=== PATIENT | male | born 1950 | race Caucasian/White ===

== ENCOUNTER 2017-09-06 05:01 | Inpatient (IN) | payer OTHER, MEDICARE ==
[~2017-09-06] VITALS: Ht 177.8 cm; Wt 93.1 kg
[2017-09-06] MEDS ORDERED: SODIUM CHLORIDE 0.9% 1,000 ML IV ONE (06:11)
[2017-09-06 07:00] LABS: BASOPHILS % 0.7 % (0.0-2.0); EOSINOPHILS % 2.4 % (0.0-5.0); HEMATOCRIT. 49.4 % (42.0-52.0); HEMOGLOBIN. 16.8 g/dL (14.0-18.0); LYMPHOCYTES % 18.4 % (20.0-50.0); MEAN CORPUSCULAR HEMOGLOBIN 31.8 pg (28.0-32.0); MEAN CORPUSCULAR VOLUME 93.8 fL (80.0-94.0); MEAN PLATELET VOLUME 8.4 fl (7.4-10.4); MONOCYTES % 8.1 % (2.0-8.0); NEUTROPHILS % 70.4 % (40.0-76.0); PLATELET 222 x1000/uL (130-400); RED BLOOD CELL COUNT 5.27 mill/uL (4.7-6.1); RED CELL DISTRIBUTION WIDTH 14.5 % (11.6-14.6)
[2017-09-06 07:12] LABS: INR 1.1; PROTHROMBIN TIME 11.1 sec (9.4-11.6)
[2017-09-06 07:15] LABS: CARBON DIOXIDE 29 mEq/L (21-32); CHLORIDE 107 mEq/L (98-107)
[2017-09-06] MEDS ORDERED: LORAZEPAM 2MG/ML CPJ IV ONE (08:30)
[2017-09-06] MEDS ORDERED: SODIUM CHLORIDE 0.45% 1,000 ML IV SCH (11:14)
[2017-09-06] MEDS ORDERED: ACETAMINOPHEN 325MG TABLET PO PRN (11:15)
[2017-09-06] MEDS ORDERED: HYDROMORPHONE HCL/PF 2MG/ML CPJ IV PRN (11:15)
[2017-09-06] MEDS ORDERED: ONDANSETRON HCL 4MG/2ML VIAL IV PRN (11:15)
[2017-09-06] MEDS ORDERED: DOCUSATE SODIUM 100MG CAPSULE PO PRN (11:15)
[2017-09-06] MEDS ORDERED: DIPHENHYDRAMINE 50MG/ML VIAL IV PRN (11:15)
[2017-09-06] MEDS ORDERED: IPRATROPIUM/ALBUTEROL 0.5-3(2.5)MG/3ML NEB INH PRN (11:15)
[2017-09-06] MEDS ORDERED: CLONIDINE 0.1MG TABLET PO PRN (11:15)
[2017-09-06] MEDS ORDERED: NA PHOS,M-B/NA PHOS,DI-BA ENEMA 118ML PR PRN (11:15)
[2017-09-06] MEDS ORDERED: HYDROCODONE/ACETAMINOPHEN 5/325MG TABLET PO PRN (11:15)
[2017-09-06] MEDS ORDERED: MAGNESIUM/ALUMINUM HYDROXIDE/SIMETHICONE 30ML UDC PO PRN (11:15)
[2017-09-06] MEDS ORDERED: GUAIFENESIN 200MG/10ML SUGAR FREE UDC PO PRN (11:15)
[2017-09-06 16:04] LABS: TROPONIN I 0.03 ng/mL (0.00-0.04)
[2017-09-06] MEDS ORDERED: LACO150T2 PO (18:09)
[2017-09-06] MEDS ORDERED: KEPP500 PO (18:09)
[2017-09-06 18:10] VITALS: BP 137/79
[2017-09-06 18:11] VITALS: BP 137/79
[2017-09-06 20:00] VITALS: BP 119/76
[2017-09-06] MEDS ORDERED: PNEUMOCOCCAL 23-VAL P-SAC VAC 0.5 ML IM ONE (20:00)
[2017-09-06] MEDS: LEVETIRACETAM 500MG TABLET PO SCH (20:58)
[2017-09-06] MEDS ORDERED: LORAZEPAM 2MG/ML CPJ IV PRN (23:00)
[2017-09-07] VITALS: BP 119/84
[2017-09-07 04:00] VITALS: BP 128/85
[2017-09-07 08:00] VITALS: BP 136/84
[2017-09-07 08:00] LABS: BASOPHILS % 1.2 % (0.0-2.0); EOSINOPHILS % 5.1 % (0.0-5.0); HEMATOCRIT. 46.5 % (42.0-52.0); HEMOGLOBIN. 15.8 g/dL (14.0-18.0); LYMPHOCYTES % 26.4 % (20.0-50.0); MEAN CORPUSCULAR HEMOGLOBIN 31.9 pg (28.0-32.0); MEAN CORPUSCULAR VOLUME 93.6 fL (80.0-94.0); MEAN PLATELET VOLUME 8.8 fl (7.4-10.4); MONOCYTES % 9.2 % (2.0-8.0); NEUTROPHILS % 58.1 % (40.0-76.0); PLATELET 201 x1000/uL (130-400); RED BLOOD CELL COUNT 4.97 mill/uL (4.7-6.1); RED CELL DISTRIBUTION WIDTH 14.3 % (11.6-14.6)
[2017-09-07] MEDS: LEVETIRACETAM 500MG TABLET PO SCH ×2 (08:25→21:29)
[2017-09-07] MEDS ORDERED: LACOSAMIDE 150 MG PO SCH (09:00)
[2017-09-07 09:22] LABS: CHLORIDE 108 mEq/L (98-107)
[2017-09-07 11:10] LABS: CARBON DIOXIDE 21 mEq/L (21-32); HDL CHOLESTEROL 35 mg/dL (40-59); LDL CHOLESTEROL 164 mg/dL (5-100)
[2017-09-07 12:00] VITALS: BP 132/71
[2017-09-07] MEDS ORDERED: QUET25TA PO (13:35)
[2017-09-07] MEDS ORDERED: LEVE1000 PO (13:35)
[2017-09-07] MEDS ORDERED: LACO100T2 PO (13:35)
[2017-09-07 16:00] VITALS: BP 114/81
[2017-09-07] MEDS: LACOSAMIDE 200 MG PO SCH (16:50)
[2017-09-07 20:24] VITALS: BP 133/90
[2017-09-07] MEDS ORDERED: QUETIAPINE FUMARATE 25MG TABLET PO SCH (21:00)
[2017-09-07] MEDS ORDERED: ATORVASTATIN CALCIUM 20MG TABLET PO SCH (21:00)
[2017-09-07] MEDS ORDERED: LEVETIRACETAM 500MG TABLET PO SCH (21:00)
[2017-09-08 00:50] VITALS: BP 120/92
[2017-09-08 04:00] VITALS: BP 122/86
[2017-09-08 08:00] VITALS: BP 134/78
[2017-09-08] MEDS: LACOSAMIDE 200 MG PO SCH (09:14)
[2017-09-08] MEDS: LEVETIRACETAM 500MG TABLET PO SCH (09:15)
[2017-09-08 11:11] VITALS: BP 129/85
[2017-09-08 11:17] VITALS: BP 129/85
== END 2017-09-08 12:05 | disposition home or self-care (01) | DRG 100 ==
LOC: ER 05:01 → ENRESERV 16:20 → 7WST 16:21
PROVIDERS: ADMIT Internal Medicine; ATTEND Internal Medicine
DX: G40.409 Other generalized epilepsy and epileptic syndromes, not intractable, without status epilepticus (principal); N17.0 Acute kidney failure with tubular necrosis; W18.39XA Other fall on same level, initial encounter; I10 Essential (primary) hypertension; E86.0 Dehydration; Y93.89 Activity, other specified; R94.01 Abnormal electroencephalogram [EEG]; Y92.89 Other specified places as the place of occurrence of the external cause; Y99.8 Other external cause status; Z91.013 Allergy to seafood; Z79.899 Other long term (current) drug therapy; Z92.21 Personal history of antineoplastic chemotherapy; Z85.841 Personal history of malignant neoplasm of brain
CPT/HCPCS: 36415; 70450; 80048; 80053; 80061; 82542; 84439; 84443; 84484; 85025; 85610; 93005; 96361; 96374; 99285; J2060; J7030

== ENCOUNTER 2017-11-29 17:58 | Emergency (ER) | payer MEDICARE, OTHER ==
[~2017-11-29] VITALS: Ht 170.2 cm; Wt 70.0 kg
[~2017-11-29 17:58] MED LIST: LACO100T2 PO; QUET25TA PO
[2017-11-29 18:39] LABS: BASOPHILS % 0.6 % (0.0-2.0); EOSINOPHILS % 3.2 % (0.0-5.0); HEMATOCRIT. 45.1 % (42.0-52.0); HEMOGLOBIN. 15.6 g/dL (14.0-18.0); LYMPHOCYTES % 13.8 % (20.0-50.0); MEAN CORPUSCULAR HEMOGLOBIN 32.3 pg (28.0-32.0); MEAN CORPUSCULAR VOLUME 93.3 fL (80.0-94.0); MEAN PLATELET VOLUME 8.3 fl (7.4-10.4); MONOCYTES % 7.4 % (2.0-8.0); PLATELET 239 x1000/uL (130-400); RED BLOOD CELL COUNT 4.84 mill/uL (4.7-6.1); RED CELL DISTRIBUTION WIDTH 14.5 % (11.6-14.6)
[2017-11-29 18:46] LABS: CHLORIDE 105 mEq/L (98-107); PROTHROMBIN TIME 10.7 sec (9.4-11.6)
[2017-11-30 02:01] VITALS: BP 105/73
== END 2017-11-30 02:26 | disposition home or self-care (01) ==
LOC: ER 18:20
DX: R20.0 Anesthesia of skin (principal); R20.2 Paresthesia of skin; R56.9 Unspecified convulsions; Z86.73 Personal history of transient ischemic attack (TIA), and cerebral infarction without residual deficits; Z98.890 Other specified postprocedural states; Z85.841 Personal history of malignant neoplasm of brain
CPT/HCPCS: 36415; 70450; 71045; 80053; 85025; 85610; 99285